=== PATIENT | male | born 1990 | race Caucasian/White ===

== ENCOUNTER 2023-04-06 10:26 | Emergency (ER) | payer OTHER ==
[2023-04-06 10:34] VITALS: BP 132/88; PULSE 76; RESP 16; TEMP 99.5; BMI 26.1
== END 2023-04-06 12:20 | disposition home or self-care (01) ==
LOC: SUPCPDRO 10:26 → FER 10:26
DX: R07.89 Other chest pain (principal); M94.0 Chondrocostal junction syndrome [Tietze]
CPT/HCPCS: 71046-TC-FY; 93005; 99284-25